=== PATIENT | female | born 1950 | race Caucasian/White ===

== ENCOUNTER 2017-10-18 06:42 | Day surgery (SDC) | payer MEDICARE, OTHER ==
[2015-10-11 00:16] VITALS: BMI 33.8
[2017-10-18] MEDS ORDERED: Lactated Ringer's 1,000 ML IV ONE (08:27)
[2017-10-18] MEDS ORDERED: Propofol 10 mg/ml Inj (20 ML) ONE (08:47)
[2017-10-18] MEDS ORDERED: Lidocaine Hydrochloride 5 ML INJ ONE (08:48)
--- NOTE | 2017-10-18 08:49 | CP.SDSHP ---
Same Day Surgery H & P - History Proposed Procedure: EGD Pre-Op Diagnosis: SEE NOTES - Previous Medical/Surgical History Cardiac: Hypertension, ASHD/CAD Pulmonary: Asthma Endocrine/Metabolic: Diabetes, Other Neuro: Backaches, Other Misc: Other Pain: 4.Moderate Pain - Allergies Allergies: Allergies iodine Allergy (Severe, Verified 10/11/15 00:23) ANAPHYLAXIS Penicillins Allergy (Severe, Verified 10/11/15 00:23) ANAPHYLAXIS BERRIES Allergy (Severe, Uncoded 10/11/15 00:23) RASH - Physical Exam General Appearance: N Vital Signs: Vital Signs 10/18/17 07:34 Temperature 97 F L Pulse Rate 80 Respiratory 20 Rate Blood Pressure 140/78 O2 Sat by Pulse 97 Oximetry Mental Status: Alert & Oriented x3 Neuro: WNL Heart: Other Lungs: Other GI: Other - {Optional Preform as Required} Breast: WNL Abdomen: Other Rectal: Other Integument: WNL : WNL Ortho: Other ENT: WNL - Impression Pt. Evaluated Today:Candidate for Anesthesia & Procedure: Yes - Date & Time Time: 08:49 Short Stay Discharge - Short Stay Discharge Admitting Diagnosis/Reason for Visit: DYSPEPSIA Disposition: HOME/ ROUTINE
[2017-10-18] MEDS ORDERED: Belladonna-Phenobarbital PO STA (09:03)
[2017-10-18 09:12] VITALS: TEMP 96.8
[2017-10-18] MEDS ORDERED: Sucralfate 1 gm/10 ml Oral Susp UD PO ONE (09:25)
[2017-10-18 09:26] VITALS: O2SAT 99
[2017-10-18 09:52] VITALS: BP 121/67; PULSE 88; RESP 21
== END 2017-10-18 10:55 | disposition home or self-care (01) ==
LOC: C.ENDO 06:42
PROVIDERS: ATTEND Specialist
DX: B37.81 Candidal esophagitis (principal); K30 Functional dyspepsia; K44.9 Diaphragmatic hernia without obstruction or gangrene; E11.9 Type 2 diabetes mellitus without complications; I10 Essential (primary) hypertension; I25.10 Atherosclerotic heart disease of native coronary artery without angina pectoris; J45.909 Unspecified asthma, uncomplicated; Z88.0 Allergy status to penicillin
CPT/HCPCS: 43235; 82948; J2704; J2765; J7120